=== PATIENT | male | born 1940 | race Caucasian/White ===

== ENCOUNTER → 2017-04-12 | Outpatient (CLI) | payer OTHER ==
[2017-04-12 13:36] LABS: HEMATOCRIT 40.9 % (42-52); MEAN CELL VOLUME 91.1 fL (80-100); MEAN CORPUSCULAR HEMOGLOBIN 30.5 pg (25-34); MEAN CORPUSCULAR HGB CONC 33.5 g/dl (32-36); MEAN PLATELET VOLUME 10.9 fL (7.4-10.4); PLATELET COUNT 148 K/uL (130-400); RED BLOOD COUNT 4.49 M/uL (4.7-6.1); WHITE BLOOD COUNT 4.83 K/uL (4.8-10.8)
[2017-04-12 14:31] LABS: ALT/SGPT 33 U/L (12-78); AST/SGOT 25 U/L (15-37); BLOOD UREA NITROGEN 17 mg/dl (7-18); BUN/CREATININE RATIO 21.7 (10-20); CARBON DIOXIDE 30 mmol/L (21-32); CHLORIDE 108 mmol/L (98-107); CHOLESTEROL 129 mg/dl (0-200); CREATININE 0.78 mg/dl (0.60-1.40); GLUCOSE 100 mg/dl (70-99); POTASSIUM 4.1 mmol/L (3.5-5.1); SODIUM 143 mmol/L (136-145); TRIGLYCERIDES 49 mg/dl (0-150); VERY LOW DENSITY LIPOPROT CALC 10 mg/dl
[2017-04-12 14:35] LABS: CALCIUM 9.1 mg/dl (8.5-10.1); HDL CHOLESTEROL 63 mg/dl; LDL CHOLESTEROL CALCULATED 56 mg/dl; PROSTATE SPECIFIC ANTIGEN < 0.010 ng/ml (0.000-4.000)
== END | disposition home or self-care (01) ==
LOC: C.LABBC 10:10
PROVIDERS: ATTEND Internal Medicine Cardiovascular Disease
DX: I25.10 Atherosclerotic heart disease of native coronary artery without angina pectoris (principal); I10 Essential (primary) hypertension; E78.5 Hyperlipidemia, unspecified; I35.0 Nonrheumatic aortic (valve) stenosis; R74.0 Nonspecific elevation of levels of transaminase and lactic acid dehydrogenase [LDH]; C61 Malignant neoplasm of prostate

== ENCOUNTER 2025-05-16 17:27 | Observation (INO) ==
--- NOTE | 2025-05-16 17:58 | Emergency Department Note ---
History of Present Illness General Chief complaint: Groin Pain Stated complaint: GROIN PAIN AND SWELLING Time Seen by Provider: 05/16/25 17:36 History of Present Illness Provider complaint: Right groin swelling after cardiac cath Maximum Pain Intensity: 4 84-year-old male presents emergency department for right groin swelling status post cardiac cath done today. Patient states he had a cardiac catheterization done by Dr. Monteiro today and it went home and started noticing swelling in his right groin that is painful. He reports no chest pain or difficulty breathing. Home Medications Medication Instructions Recorded Confirmed Type cholecalciferol (vitamin D3) 125 5,000 unit PO DAILY 09/15/18 05/16/25 History mcg (5,000 unit) tablet (Vitamin D3) multivitamin 1 tab PO DAILY 09/15/18 05/16/25 History omeprazole 20 mg capsule,delayed 20 mg PO DAILY #90 caps 04/17/19 05/16/25 Rx release aspirin 81 mg tablet,delayed 81 mg PO DAILY 04/22/19 05/16/25 History release omega-3 fatty acids-fish oil 360 1 cap PO BID 08/07/19 05/16/25 History mg-1,200 mg capsule (Fish Oil) loratadine 10 mg tablet (Allergy 10 mg PO DAILY PRN Congestion 08/26/21 05/16/25 History Relief (loratadine)) carvedilol 3.125 mg tablet (Coreg) 3.125 mg PO BID #180 tabs 10/25/24 05/16/25 Rx ezetimibe 10 mg tablet (Zetia) 10 mg PO DAILY #90 tabs 01/16/25 05/16/25 Rx atorvastatin 80 mg tablet 80 mg PO HS #100 tabs 02/15/25 05/16/25 Rx ascorbic acid (vitamin C) 1,000 mg 1,000 mg PO DAILY 05/09/25 05/16/25 History capsule diphenhydramine HCl 50 mg capsule 50 mg PO DAILY PRN Sleep 05/09/25 05/16/25 History hydrochlorothiazide 12.5 mg tablet 12.5 mg PO DAILY 05/16/25 05/16/25 History Allergies Allergy/AdvReac Type Severity Reaction Status Date / Time iodine Allergy Intermediate FLUSHED/REDDENED Verified 05/16/25 18:50 HOT SKIN Past Med/Surg History Problem List (Updated 05/16/25 @ 22:32 by John Mckay MD) Pseudoaneurysm (Acute) Pseudoaneurysm following procedure Dyspnea on exertion Sinusitis Vitamin D deficiency (Acute) Impaired fasting glucose (Acute) GERD without esophagitis (Acute) Dyslipidemia (Acute) Dupuytren's contracture (Acute) Coronary artery disease (Acute) Cigar smoker (Acute) Carotid bruit (Acute) Aortic stenosis (Acute) Anemia (Acute) Heart murmur HTN (hypertension) Medical History Prostate cancer Myocardial infarction Surgical History S/P Mohs surgery for basal cell carcinoma Hx of colonoscopy Hx of CABG Cataract Hx of heart bypass surgery Family History Father Myocardial infarction Brother Colorectal cancer Hx of heart bypass surgery Stroke Mother Breast cancer Denies family history of Ovarian cancer Prostate cancer Social History Smoking Status: Never smoker Tobacco Type: Cigars Second Hand Exposure: No; Do You Dip or Chew Tobacco: No; Hx Alcohol Use: Yes Alcohol type: beer, wine and hard liquor Alcohol Intake Frequency: 2-3 x/Week Hx Substance Use: No Preferred Language: Syriac Communication Ability: Effective Visual Impairment: No Limitations Hearing Ability: Normal 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 Beliefs That Will Affect Care: None marital status: Current Living Situation: Spouse current occupational status: retired How many Children do You have: 2 Feels Safe at Home: Yes Childhood Exposure to Second-Hand Smoke: Yes Diet: regular caffeine: Yes during the past year weight has: remained stable Dental Care, Regularly: Yes Physical Activity Frequency: Daily Physical Activity Frequency Comment: golfing, gym Seatbelt Use: always Sunscreen Use: Yes Assistive Devices: None Physical Exam Vital Signs Vital Signs - 24 hr 05/16/25 17:31 05/16/25 17:52 05/16/25 17:58 Temperature 36 C L Temperature Source Temporal Artery Scan Pulse Rate 77 79 Pulse Rate [Left Apical] 80 Respiratory Rate 18 19 Respiratory Effort / Characteristics Non-Labored Non-Labored Spontaneous Respiratory Depth Normal Normal Respiratory Pattern Regular Regular Blood Pressure 187/99 H Blood Pressure [Right Arm] 162/93 H Blood Pressure Mean 128 Blood Pressure Mean [Right Arm] 116 Pulse Oximetry 94 93 Oxygen Delivery Method Room Air Room Air Sepsis Recent Fever Within 48 Hours No Sepsis New/Unexplained Change in Mental Status N/A Sepsis Action Taken by Nursing No Action Required 05/16/25 19:50 05/16/25 20:00 05/16/25 20:30 Temperature Temperature Source Pulse Rate 81 Pulse Rate [Left Apical] 81 Respiratory Rate 22 18 Respiratory Effort / Characteristics Non-Labored Spontaneous Respiratory Depth Normal Respiratory Pattern Regular Blood Pressure 161/90 H 155/107 H Blood Pressure [Right Arm] 154/93 H Blood Pressure Mean 113 121 Blood Pressure Mean [Right Arm] 113 Pulse Oximetry 93 91 Oxygen Delivery Method Room Air Room Air Sepsis Recent Fever Within 48 Hours Sepsis New/Unexplained Change in Mental Status Sepsis Action Taken by Nursing 05/16/25 20:42 05/16/25 20:51 05/16/25 20:55 Temperature Temperature Source Pulse Rate 84 89 87 Pulse Rate [Left Apical] Respiratory Rate 24 18 Respiratory Effort / Characteristics Respiratory Depth Respiratory Pattern Blood Pressure Blood Pressure [Right Arm] Blood Pressure Mean Blood Pressure Mean [Right Arm] Pulse Oximetry 92 95 Oxygen Delivery Method Room Air Room Air Sepsis Recent Fever Within 48 Hours Sepsis New/Unexplained Change in Mental Status Sepsis Action Taken by Nursing 05/16/25 21:30 05/16/25 22:00 Temperature Temperature Source Pulse Rate 83 82 Pulse Rate [Left Apical] Respiratory Rate 15 17 Respiratory Effort / Characteristics Respiratory Depth Respiratory Pattern Blood Pressure 154/90 H 145/88 H Blood Pressure [Right Arm] Blood Pressure Mean 120 107 Blood Pressure Mean [Right Arm] Pulse Oximetry 93 94 Oxygen Delivery Method Room Air Room Air Sepsis Recent Fever Within 48 Hours Sepsis New/Unexplained Change in Mental Status Sepsis Action Taken by Nursing Physical Exam NECK: Normal range of motion. Neck supple. No JVD present. CV: Normal rate, regular rhythm, normal heart sounds and intact distal pulses. There is no peripheral edema. Palpable radial pulses bue. PULM/CHEST: Effort normal and breath sounds normal. No respiratory distress. No stridor. no wheezes. no rales. ABD: The abdomen is soft. There is no tenderness. : Tender lump in the patient's right groin over the catheterization site. No overlying ecchymosis. No bleeding from the catheterization site. Course Course 173: The patient was evaluated in room B9. A complete history and physical exam was performed Cardiac monitoring: An order was placed for continuous cardiac monitoring. The monitor shows a rate of 80 with sinus rhythm interpreted by me 1958: Labs are unremarkable. plastic process technician reported that the patient does have a large pseudoaneurysm. Will let cardiology know. 2006: Vital signs stable. Spoke with Dr. Browning cardiology. He states that the patient will need to be evaluated by vascular surgery. Unfortunately there is no vascular surgeon available at this facility this entire weekend. He states the patient might need to be transferred. 2021: Dr. Browning at bedside. He states the patient needs to be transferred to a place for vascular surgery is available. There are staff shortages today and difficulty for ALS ground transport. Both Dr. Browning and I feel like the patient is not a candidate for BLS transfer which is available. Will contact [facility] to see if they are able to accept the patient and possibly fly the patient to their facility. 2035: Dr. Browning and I spoke with Dr. Walters [facility] vascular surgery. Dr. Walters accepted the patient to his service. He states he recommends the patient being transferred to the emergency department at [place] for his team to evaluate the patient in the emergency department. Dr. Browning myself and Dr. Walters spoke with Dr. Dennis on the telephone [place] emergency department. She accepted the patient to the emergency department at the request of Dr. Walters. Transfer center states that there is no air transportation available at this time. Dr. Dennis recommends CT angio of the abdomen pelvis which Dr. Walters agrees with. Patient has allergy to iodine will be treated with Benadryl and Solu-Medrol. Given that there is no air or ground transportation available, patient will need to be admitted to this facility until transportation to [facility] is available via ground or air. Dr. Browning and I feel the patient would be best served in the ICU setting for more closer nursing care. 2101: Vital signs stable. Dr. Oglesby made aware of the case and ICU ARNOL Cook was made aware of the patient and the situation with lack of air ground transportation to [place] from this facility. They will evaluate the patient for admission. Administered Medications Discontinued Medications Diphenhydramine HCl (Diphenhydramine 50 Mg/Ml Vial) 50 mg IV ONE ONE Stop: 05/16/25 20:43 Last Admin: 05/16/25 20:50 Dose: 50 mg Documented By: LANCE Ioversol (Optiray 320 125ml) 119 ml IV ONCE ONE Stop: 05/16/25 21:10 Last Admin: 05/16/25 21:09 Dose: 119 ml Documented By: EMILY Methylprednisolone (Methylprednisolone 125 Mg/2 Ml Vial) 40 mg IV NOW ONE Stop: 05/16/25 20:43 Last Admin: 05/16/25 20:50 Dose: 40 mg Documented By: LANCE Critical Care Time Critical Care Time: Yes Total Critical Care Time: 38 I have personally spent greater than 38 minutes of critical care time in the direct management of this patient. This includes bedside care, interpretation of diagnostic studies, and testing, discussion with consultants, patient, and family members, and other required patient management activities. This 38 minutes is in excess of all separately billable procedures. Medical Decision Making Laboratory Data Attestation: I reviewed the patient's lab results. 05/16/25 17:55 05/16/25 17:55 Lab Results 05/16/25 Range/Units 17:55 WBC 6.89 (4.8-10.8) K/ul RBC 4.63 L (4.70-6.10) M/uL Hgb 14.3 (14.0-18.0) g/dl Hct 41.1 L (42.0-52.0) % MCV 88.8 (80.0-100.0) fL MCH 30.9 (25.0-34.0) pg MCHC 34.8 (32.0-36.0) g/dL RDW Std Deviation 39.7 (36.4-46.3) fL RDW Coeff of Genevieve 12.2 (11.5-14.5) % Plt Count 135 (130-400) K/uL MPV 10.5 (9.4-12.4) fL Immature Gran % (Auto) 0.4 % Neut % (Auto) 88.5 % Lymph % (Auto) 9.9 % [place] % (Auto) 1.0 % Eos % (Auto) 0.1 % Baso % (Auto) 0.1 % Neut # (Auto) 6.09 (1.40-6.50) K/uL Lymph # (Auto) 0.68 L (1.20-3.40) K/uL [place] # (Auto) 0.07 L (0.11-0.59) K/uL Eos # (Auto) 0.01 (0.00-0.50) K/uL Baso # (Auto) 0.01 (0.00-0.20) K/uL Immature Gran # (Auto) 0.03 (0.01-0.20) K/uL PT 11.2 (9.0-12.0) Seconds INR 1.0 (0.9-1.1) APTT 28 (21-31) Seconds PTT Ratio 1.0 Sodium 138 (136-145) mmol/L Potassium 3.8 (3.5-5.1) mmol/L Chloride 103 (98-107) mmol/L Carbon Dioxide 27 (21-32) mmol/L Anion Gap 8 (3-11) BUN 18 (6-23) mg/dl Creatinine 0.80 (0.6-1.4) mg/dl Est Cr Clr Drug Dosing 84.0 ml/min eGFR 87.81 BUN/Creatinine Ratio 22.5 H (10-20) Glucose 214 H (70-99(Fasting)) mg/dl Calcium 9.6 (8.6-10.3) mg/dl Imaging Data Attestation: I personally reviewed and interpreted this imaging study as follows: My Impression: Ultrasound viewed by id showed a large pseudoaneurysm in the right groin Radiologist's Impression: Duplex Scan Lower Extremity Artery 05/16/25 17:53 Limited right lower extremity arterial Doppler ultrasound Technique:Grayscale and color Doppler ultrasound images of the right groin. No comparison Findings: There is a 4.8 x 4.9 x 2.9 cm right sided pseudoaneurysm arising from the common femoral artery. There is a relatively short neck. No comparison Findings: 4.8 cm right common femoral artery pseudoaneurysm. CT angiogram recommended for further evaluation. Electronically signed by Martin Ace 05-16-2025 8:40 PM [facility] Narrative 1736: The patient was evaluated in room B9. A complete history and physical exam was performed Cardiac monitoring: An order was placed for continuous cardiac monitoring. The monitor shows a rate of 80 with sinus rhythm interpreted by me 1959: Labs are unremarkable. plastic process technician reported that the patient does have a large pseudoaneurysm. Will let cardiology know. 2006: Vital signs stable. Spoke with Dr. Browning cardiology. He states that the patient will need to be evaluated by vascular surgery. Unfortunately there is no vascular surgeon available at this facility this entire weekend. He states the patient might need to be transferred. 2021: Dr. Browning at bedside. He states the patient needs to be transferred to a place for vascular surgery is available. There are staff shortages today and difficulty for ALS ground transport. Both Dr. Browning and I feel like the patient is not a candidate for BLS transfer which is available. Will contact [facility] to see if they are able to accept the patient and possibly fly the patient to their facility. 2035: Dr. Browning and I spoke with Dr. Walters [facility] vascular surgery. Dr. Walters accepted the patient to his service. He states he recommends the patient being transferred to the emergency department at [place] for his team to evaluate the patient in the emergency department. Dr. Browning myself and Dr. Walters spoke with Dr. Dennis on the telephone [place] emergency department. She accepted the patient to the emergency department at the request of Dr. Walters. Transfer center states that there is no air transportation available at this time. Dr. Dennis recommends CT angio of the abdomen pelvis which Dr. Walters agrees with. Patient has allergy to iodine will be treated with Benadryl and Solu-Medrol. Given that there is no air or ground transportation available, patient will need to be admitted to this facility until transportation to [facility] is available via ground or air. Dr. Browning and I feel the patient would be best served in the ICU setting for more closer nursing care. 2101: Vital signs stable. Dr. Oglesby made aware of the case and ICU ARNOL Cook was made aware of the patient and the situation with lack of air ground transportation to [place] from this facility. They will evaluate the patient for admission. Impression & Plan Pseudoaneurysm Discharge Plan Visit Data Chief Complaint: Groin Pain Stated Complaint: GROIN PAIN AND SWELLING ED Provider: John Mckay Discharge Problem: Pseudoaneurysm Patient Disposition: Admitted As Inpatient Condition: Serious Forms Stand Alone Forms: My [facility] Prescriptions Prescriptions: No Action carvedilol [Coreg] 3.125 mg tablet 3.125 mg PO BID Qty: 180 3RF Rx Instructions: must administer with a meal/food ezetimibe [Zetia] 10 mg tablet 10 mg PO DAILY Qty: 90 3RF atorvastatin 80 mg tablet 80 mg PO HS Qty: 100 3RF omeprazole 20 mg capsule,delayed release(DR/EC) 20 mg PO DAILY Qty: 90 1RF aspirin 81 mg tablet,delayed release (DR/EC) 81 mg PO DAILY omega-3 fatty acids-fish oil [Fish Oil] 360-1,200 mg capsule 1 cap PO BID loratadine [Allergy Relief (loratadine)] 10 mg tablet 10 mg PO DAILY PRN (Reason: Congestion) ascorbic acid (vitamin C) 1,000 mg capsule 1,000 mg PO DAILY diphenhydramine HCl 50 mg capsule 50 mg PO DAILY PRN (Reason: Sleep) multivitamin Tablet 1 tab PO DAILY cholecalciferol (vitamin D3) [Vitamin D3] 5,000 unit Tablet 5,000 unit PO DAILY hydrochlorothiazide 12.5 mg tablet 12.5 mg PO DAILY Referrals Referrals: Syed Tyson DO [Primary Care Provider] -
[2025-05-16 18:13] LABS: Basophils # (auto) 0.01 K/uL (0.00-0.20); Basophils % (auto) 0.1 %; Eosinophils # (auto) 0.01 K/uL (0.00-0.50); Eosinophils % (auto) 0.1 %; Hematocrit (blood only) 41.1 % (42.0-52.0); Hemoglobin 14.3 g/dl (14.0-18.0); Immature Granulocytes # (auto) 0.03 K/uL (0.01-0.20); Immature Granulocytes % (auto) 0.4 %; Lymphocytes # (auto) 0.68 K/uL (1.20-3.40); Lymphocytes % (auto) 9.9 %; Mean Corpuscular Hemoglobin 30.9 pg (25.0-34.0); Mean Corpuscular Hgb Conc 34.8 g/dL (32.0-36.0); Mean Corpuscular Volume 88.8 fL (80.0-100.0); Mean Platelet Volume 10.5 fL (9.4-12.4); Monocytes # (auto) 0.07 K/uL (0.11-0.59); Neutrophils # (auto) 6.09 K/uL (1.40-6.50); Neutrophils % (auto) 88.5 %; Platelet Count 135 K/uL (130-400); RDW Coefficient of Variation 12.2 % (11.5-14.5); RDW Standard Deviation 39.7 fL (36.4-46.3); Red Blood Count 4.63 M/uL (4.70-6.10); White Blood Count 6.89 K/ul (4.8-10.8)
[2025-05-16 18:26] LABS: BUN Creatinine Ratio 22.5 (10-20); Calcium 9.6 mg/dl (8.6-10.3); Potassium 3.8 mmol/L (3.5-5.1)
[2025-05-16 18:37] LABS: Partial Thromboplastin Time 28 Seconds (21-31); Prothrombin Time 11.2 Seconds (9.0-12.0)
--- NOTE | 2025-05-16 20:40 | Ultrasound Report ---
Limited right lower extremity arterial Doppler ultrasound Technique:Grayscale and color Doppler ultrasound images of the right groin. No comparison Findings: There is a 4.8 x 4.9 x 2.9 cm right sided pseudoaneurysm arising from the common femoral artery. There is a relatively short neck. No comparison Findings: 4.8 cm right common femoral artery pseudoaneurysm. CT angiogram recommended for further evaluation. Electronically signed by Martin Ace 05-16-2025 8:40 PM
[2025-05-16] MEDS: diphenhydrAMINE 50 MG/ML VIAL IV ONE (20:50)
[2025-05-16] MEDS: methylPREDNISolone 125 MG/2 ML VIAL IV ONE (20:50)
[2025-05-16] MEDS: OPTIRAY 320 125ml IV ONE (21:09)
--- NOTE | 2025-05-16 21:39 | History & Physical Report ---
Date of Service May 16, 2025 Assessment & Plan (1) Pseudoaneurysm: (2) Coronary artery disease: (3) HTN (hypertension): (4) Dyslipidemia: (5) GERD without esophagitis: Plan 84yo male with known multi-vessel CAD s/p CABG presenting with right sided groin pain and swelling following cardiac catheterization performed earlier today. Found to have pseucoaneurysm. Patient is HD stable, RLE is warm and well perfused. No pain in the groin at present. #Pseudoaneurysm - post-procedural, large right common femoral artery aneurysm. Stable at present. Unfortunately no Vascular Surgery coverage at [facility] this weekend. Patient has been accepted [place] [facility] [place] of [place]. Morton. No transportation available until tomorrow at 0700. -Admit to MICU -Maintain manual pressure as needed -Ice -NV checks q hourly -Transfer in AM #CAD -Continue Atorvastatin, Carvedilol, Zetia -Hold ASA #Hypertension -Continue Carvedilol and HCTZ #GERD -Continue Protonix History of Present Illness Chief Complaint: right groin pain, pseudoaneurysm Primary Care Provider: DO Darlene Grimes Dwayne is a pleasant 84yo male with history of multivessel CAD s/p CABG x 5v and severe aortic stenosis with mild AR per echo 04/29/2025, HTN, HLP and GERD presenting with right femoral pseudoaneurysm following a cardiac catheterization. Patient had catheterization performed today as part of his workup for a future TAVR. Multi-vessel disease re-demonstrated with patent grafts. After returning home he noted right groin swelling an discomfort. No additional complaints at this time. In the ER patient afebrile, hemodynamically stable with mild hypertension ER course: Benadryl Solu-Medrol Allergies Allergy/AdvReac Type Severity Reaction Status Date / Time iodine Allergy Intermediate FLUSHED/REDDENED Verified 05/16/25 18:50 HOT SKIN Home Medications Medication Instructions Recorded Confirmed Type cholecalciferol (vitamin D3) 125 5,000 unit PO DAILY 09/15/18 05/16/25 History mcg (5,000 unit) tablet (Vitamin D3) multivitamin 1 tab PO DAILY 09/15/18 05/16/25 History omeprazole 20 mg capsule,delayed 20 mg PO DAILY #90 caps 04/17/19 05/16/25 Rx release aspirin 81 mg tablet,delayed 81 mg PO DAILY 04/22/19 05/16/25 History release omega-3 fatty acids-fish oil 360 1 cap PO BID 08/07/19 05/16/25 History mg-1,200 mg capsule (Fish Oil) loratadine 10 mg tablet (Allergy 10 mg PO DAILY PRN Congestion 08/26/21 05/16/25 History Relief (loratadine)) carvedilol 3.125 mg tablet (Coreg) 3.125 mg PO BID #180 tabs 10/25/24 05/16/25 Rx ezetimibe 10 mg tablet (Zetia) 10 mg PO DAILY #90 tabs 01/16/25 05/16/25 Rx atorvastatin 80 mg tablet 80 mg PO HS #100 tabs 02/15/25 05/16/25 Rx ascorbic acid (vitamin C) 1,000 mg 1,000 mg PO DAILY 05/09/25 05/16/25 History capsule diphenhydramine HCl 50 mg capsule 50 mg PO DAILY PRN Sleep 05/09/25 05/16/25 History hydrochlorothiazide 12.5 mg tablet 12.5 mg PO DAILY 05/16/25 05/16/25 History Past Med/Surg History Problem List Pseudoaneurysm (Acute) Pseudoaneurysm following procedure Dyspnea on exertion Sinusitis Vitamin D deficiency (Acute) Impaired fasting glucose (Acute) GERD without esophagitis (Acute) Dyslipidemia (Acute) Dupuytren's contracture (Acute) Coronary artery disease (Acute) Cigar smoker (Acute) Carotid bruit (Acute) Aortic stenosis (Acute) Anemia (Acute) Heart murmur HTN (hypertension) Medical History Prostate cancer Myocardial infarction Surgical History S/P Mohs surgery for basal cell carcinoma Hx of colonoscopy Hx of CABG Cataract Hx of heart bypass surgery Family History Father Myocardial infarction Brother Colorectal cancer Hx of heart bypass surgery Stroke Mother Breast cancer Denies family history of Ovarian cancer Prostate cancer Social History Smoking Status: Former smoker Tobacco Type: Pipe Smoking End Date: 5 years ago; Second Hand Exposure: No; Do You Dip or Chew Tobacco: No; Hx Alcohol Use: No Hx Substance Use: No Preferred Language: Bahraini Communication Ability: Effective Visual Impairment: No Limitations Hearing Ability: Normal Experimental 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 Required: No Beliefs That Will Affect Care: None marital status: Current Living Situation: Spouse Current Living Situation Comment: lives at home with current occupational status: retired How many Children do You have: 2 Other Information That Helps Us Care for You: No Feels Safe at Home: Yes Safety Concerns: Feels Safe At This Time Childhood Exposure to Second-Hand Smoke: Yes Diet: regular caffeine: Yes during the past year weight has: remained stable Dental Care, Regularly: Yes Physical Activity Frequency: Daily Physical Activity Frequency Comment: golfing, gym Seatbelt Use: always Sunscreen Use: Yes Assistive Devices: None Review of Systems Review of Systems: All systems reviewed & are unremarkable except as noted in HPI & below Physical Exam Physical Exam: General: patient resting comfortably, NAD, non-toxic in appearance, AA&O x 4 Skin: warm, dry, intact, no rashes or lesions HEENT: NC/AT, PERRL, EOMI, anicteric sclera, conjunctiva without injection, external ear normal to inspection and nontender, nares patent, moist mucus membranes, dentition intact, no oropharyngeal lesions, neck supple, trachea midline, no LAD, no thyromegaly, no JVD Heart: +S1/S2, regular, 4/6 VIJAY across precordium to bilateral carotids Lungs: equal air entry bilaterally, no rales/rhonchi/wheezes Abd: +BS, soft, NT/ND, no masses/organomegaly/ascites Ext: warm, 2+ pulses in UE/LE bilaterally, no clubbing/cyanosis or edema Neuro: nonfocal, patient AA&O x 4, speech intact, no facial droop, moving all extremities on command with equal strength 5/5 Results & Data Results & Data Vital Signs (Past 12 Hours) Vital Signs Temp Pulse Pulse Resp BP BP Pulse Ox 05/16/25 21:30 83 15 154/90 H 93 05/16/25 20:55 87 05/16/25 20:51 89 18 95 05/16/25 20:42 84 24 92 05/16/25 20:30 155/107 H 05/16/25 20:00 81 18 161/90 H 91 05/16/25 19:50 81 22 154/93 H 93 05/16/25 17:58 80 19 162/93 H 93 05/16/25 17:52 79 05/16/25 17:31 36 C L 77 18 187/99 H 94 O2 Del Method 05/16/25 21:30 Room Air 05/16/25 20:55 05/16/25 20:51 Room Air 05/16/25 20:42 Room Air 05/16/25 20:30 05/16/25 20:00 Room Air 05/16/25 19:50 Room Air 05/16/25 17:58 Room Air 05/16/25 17:52 05/16/25 17:31 Room Air Laboratory Results Laboratory Results WBC 6.89 K/ul (4.8-10.8) 05/16/25 17:55 RBC 4.63 M/uL (4.70-6.10) L 05/16/25 17:55 Hgb 14.3 g/dl (14.0-18.0) 05/16/25 17:55 Hct 41.1 % (42.0-52.0) L 05/16/25 17:55 MCV 88.8 fL (80.0-100.0) 05/16/25 17:55 MCH 30.9 pg (25.0-34.0) 05/16/25 17:55 MCHC 34.8 g/dL (32.0-36.0) 05/16/25 17:55 RDW Std Deviation 39.7 fL (36.4-46.3) 05/16/25 17:55 RDW Coeff of Genevieve 12.2 % (11.5-14.5) 05/16/25 17:55 Plt Count 135 K/uL (130-400) 05/16/25 17:55 MPV 10.5 fL (9.4-12.4) 05/16/25 17:55 Immature Gran % (Auto) 0.4 % 05/16/25 17:55 Neut % (Auto) 88.5 % 05/16/25 17:55 Lymph % (Auto) 9.9 % 05/16/25 17:55 [place] % (Auto) 1.0 % 05/16/25 17:55 Eos % (Auto) 0.1 % 05/16/25 17:55 Baso % (Auto) 0.1 % 05/16/25 17:55 Neut # (Auto) 6.09 K/uL (1.40-6.50) 05/16/25 17:55 Lymph # (Auto) 0.68 K/uL (1.20-3.40) L 05/16/25 17:55 [place] # (Auto) 0.07 K/uL (0.11-0.59) L 05/16/25 17:55 Eos # (Auto) 0.01 K/uL (0.00-0.50) 05/16/25 17:55 Baso # (Auto) 0.01 K/uL (0.00-0.20) 05/16/25 17:55 Immature Gran # (Auto) 0.03 K/uL (0.01-0.20) 05/16/25 17:55 PT 11.2 Seconds (9.0-12.0) 05/16/25 17:55 INR 1.0 (0.9-1.1) 05/16/25 17:55 APTT 28 Seconds (21-31) 05/16/25 17:55 PTT Ratio 1.0 05/16/25 17:55 Sodium 138 mmol/L (136-145) 05/16/25 17:55 Potassium 3.8 mmol/L (3.5-5.1) 05/16/25 17:55 Chloride 103 mmol/L (98-107) 05/16/25 17:55 Carbon Dioxide 27 mmol/L (21-32) 05/16/25 17:55 Anion Gap 8 (3-11) 05/16/25 17:55 BUN 18 mg/dl (6-23) 05/16/25 17:55 Creatinine 0.80 mg/dl (0.6-1.4) 05/16/25 17:55 Est Cr Clr Drug Dosing 84.0 ml/min 05/16/25 17:55 eGFR 87.81 05/16/25 17:55 BUN/Creatinine Ratio 22.5 (10-20) H 05/16/25 17:55 Glucose 214 mg/dl (70-99(Fasting)) H 05/16/25 17:55 Calcium 9.6 mg/dl (8.6-10.3) 05/16/25 17:55 Impressions Duplex Scan Lower Extremity Artery 05/16/25 17:53 Limited right lower extremity arterial Doppler ultrasound Technique:Grayscale and color Doppler ultrasound images of the right groin. No comparison Findings: There is a 4.8 x 4.9 x 2.9 cm right sided pseudoaneurysm arising from the common femoral artery. There is a relatively short neck. No comparison Findings: 4.8 cm right common femoral artery pseudoaneurysm. CT angiogram recommended for further evaluation. Electronically signed by Martin Ace 05-16-2025 8:40 PM Diagnostic Findings [place], [place] [phone] CT Scan Report Patient: DARLENE CHAVEZ Admit Date: 05/16/25 MR#: [id number] Address1: [address] [place] [address] Acct ID:[id number] Address2: Date: 1940 [facility] Zip: [place] [address] Age: 84 Location: 1E Sex: M Room/Bed: [facility] Att Phy: Nidia Oglesby D.O. Diagnosis: RIGHT PSEUDOANEURYSM S/P CATHETERIZATION Genevieve Phy: Syed Tyson DO Service Date: 05/16/25 Fam Phy: Interpreting Phy: George Owens MDAdmit Phy: Nidia Oglesby D.ODaniel Ordering Phy: John Mckay MD cc: ~ Exam(s): CTA ABDOMEN + PELVIS With Contrast EXAM: CT Angiography Abdomen and Pelvis With Intravenous Contrast CLINICAL HISTORY: pseudoaneurysm. TECHNIQUE: Axial computed tomographic angiography images of the abdomen and pelvis with intravenous contrast. CTDI is 32.06 mGy and DLP is 1514.32 mGy-cm. Automated exposure control was utilized for the study. A dose lowering technique was utilized adhering to the principles of ALARA. 3D and MIP reconstructed images were created and reviewed. CONTRAST: 100 ml Omnipaque 350 COMPARISON: No relevant prior studies available. FINDINGS: VASCULATURE: Aorta: Mild diffuse partially calcified atherosclerotic plaque throughout the abdominal aorta. Normal caliber proximal and mid abdominal aorta. 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 No significant stenosis. No dissection. No periaortic infiltration or extravasation. Celiac trunk and mesenteric arteries: Minimal plaque of the origin of the superior mesenteric artery. Unremarkable inferior mesenteric artery. Mild diffuse atherosclerotic plaque in the distal branches. No definite occlusion. Renal arteries: Mild bilateral proximal renal artery atherosclerotic plaque. No occlusion or significant stenosis. Iliac arteries: Mild diffuse atherosclerotic plaque. No aneurysm of the grand traverse vessel. Right inguinal hernia with fluid and infiltration anterior to the common femoral artery and vein. 1.5 x 1.1 cm homogeneously enhancing structure within the right inguinal region surrounded by 4.8 x 4.6 cm fluid/hematoma, most suspicious for a pseudoaneurysm extending from the adjacent common femoral artery (axial series 2 image 78, sagittal series 303 image 35). No other contrast extravasation. Right inguinal hernia fat and fluid extends to the scrotum without involvement of bowel. Lung bases: [id number]-right basilar atelectasis. Mild cardiomegaly. ABDOMEN: Liver: Mildly hypodense/fatty. Normal size. No mass. Gallbladder and bile ducts: Partially contracted. Multiple small calcified gallstones. Gallbladder otherwise unremarkable. No ductal dilation. Pancreas: Unremarkable. No ductal dilation. No mass. Spleen: Top-normal length at 12.9 cm. Adrenals: Unremarkable. No mass. Kidneys and ureters: Unremarkable. No hydronephrosis. No solid mass. Stomach and bowel: No bowel obstruction or ileus. Left and sigmoid colon diverticulosis without evidence for acute diverticulitis. PELVIS: Appendix: No findings to suggest acute appendicitis. Bladder: Partially contracted. No mass. Reproductive: Prostate gland brachial therapy seeds. ABDOMEN and PELVIS: Intraperitoneal space: Unremarkable. No significant fluid collection. No free air. Bones/joints: No acute fracture. No dislocation. Soft tissues: Unremarkable. Lymph nodes: Unremarkable. No enlarged lymph nodes. IMPRESSION: Right groin pseudoaneurysm arising from the common femoral artery surrounded by a hematoma. Right inguinal hernia containing fat and fluid extending to the scrotum. Diffuse atherosclerotic changes. 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 No dissection. Cholelithiasis. Senescent changes. Electronically signed by: George Owens M.D. 05/17/25 01:07 AM Dictated: 06/28/25 0107 Transcribed: 05/17/25106 PG Care Time/CCT Total # of Minutes Spent Total Time Spent with Patient: Total time spent is greater than 50% in coordination of care (as documented) at patient's floor/unit and/or counseling patient: Coding Level of Care Code 57742 INT INP/OBS CARE 3/75MIN Diagnoses Pseudoaneurysm I72.9 Coronary artery disease I25.10 HTN (hypertension) I10 Dyslipidemia E78.5 GERD without esophagitis K21.9
--- NOTE | 2025-05-16 22:00 | Critical Care Consultation ---
Date of Consultation May 16, 2025 Assessment & Plan (1) Pseudoaneurysm following procedure: (2) Aortic stenosis: (3) HTN (hypertension): Plan Addendum 0600: D/w Vascular team [place] [facility] to provide [place]. He is accepted to [facility] level of care. Transfer pending transport availability. Patient was updated, will be updated. Reason Critically Ill: 1. 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 4/5 grafts patent, procedure uncomplicated per Dr. Browning. Mynx device failed thus pressure held to hemostasis MAP goal > 65mmHg, avoid significant hypertension Vascular checks, Ice packs and compression to femoral access site CTA is pending per Vascular Surgery request. They will be contacted with the result Plan for transfer to [facility], he has been accepted Continue statin, beta rita. Hold ASA overnight. No other thinners noted Dr. Browning remains available should patient decompensate, appreciate continued recommendations Respiratory - No acute concerns SpO2 goal > 92% HOB 30, hold IS/Flutter for now GI - No acute concerns Diet: NPO except meds SUP: Home PPI Bowel regimen: Start tomorrow RENAL/LYTES - No acute concerns Replete electrolytes as indicated No indication for andres. Urinal and remain in bed. Maintain net even to net negative ENDO - No acute concerns BG 140-180 per SCCM guidelines ISS if needed while inpatient HEME - No acute concerns Hold ASA ID - No acute concerns Any ebony-operative antibiotics per compliance consultant services LINES/TUBES/DRAINS - PIV x2 DVT PROPHYLAXIS - Held, contraindicated with bleeding risk I have personally spent 35 minutes of critical care time in the direct management of this patient. This is a life/limb threatening event. This includes time spent evaluating patient, direct bedside care, chart review, placing orders, interpretation of diagnostic studies, discussion with consultants, patient, and family members, as well as other required patient management activities. This time is exclusive of all separately billable procedures, and teaching time and separate from and in addition to any other critical care service time. Thank you for allowing us to participate in the care of this patient. Please refer to my attending physician's documentation for any further recommendations. History of Present Illness Reason for Consultation: Pseudoaneurysm Requesting Physician: Mendel Attending Physician: Mendel History of Present Illness Mr. Brian Rice is a pleasant 84YOM with a history of CAD s/p CABG x5, severe LVH, severe aortic stenosis with mild AR, GERD, HTN/HLD who presented to [facility] ED this evening due to R groin pain and swelling following a cardiac catheterization 05/16/2025 AM. Per report, patient had uncomplicated pre- operative cardiac catherization for TAVR this AM with Dr. Browning. Mynx closure device was unsuccessful, but manual pressure was held to adequate hemostasis per protocol and patient was discharged home in stable condition. A few hours later he noticed a lump on his R groin. LE duplex revealed large short-necked pseudoaneurysm. Dr. Browning was consulted who recommended Vascular Surgery con sultation. As there is no on-call Vascular service this evening, the patient was presented for transfer and accepted at [facility]. BLS transport was deferred given critical illness with risk of aneurysm rupture. Due to apparent lack of available ALS transportation services, the patient was admitted to ICU for close monitoring pending transfer. Mr. Rice was seen in ED B09. He is AAOx3. Hemodynamically stable. at bedside. Patient declines pain at this time. Sensation intact peripherally and BLE warm and well-perfused. The current situation was discussed at length. Patient understands that there is a risk of aneurysm rupture while awaiting transport. I assured him that in such a situation we would do all within our abilities to provide hemostasis and safe transfer to a facility with the appropriate services when it becomes available. Currently the patient is stable without any impending signs of rupture. All questions were answered to apparent satisfaction. Allergies Allergy/AdvReac Type Severity Reaction Status Date / Time iodine Allergy Intermediate FLUSHED/REDDENED Verified 05/16/25 18:50 HOT SKIN Home Medications Medication Instructions Recorded Confirmed Type cholecalciferol (vitamin D3) 125 5,000 unit PO DAILY 09/15/18 05/16/25 History mcg (5,000 unit) tablet (Vitamin D3) multivitamin 1 tab PO DAILY 09/15/18 05/16/25 History omeprazole 20 mg capsule,delayed 20 mg PO DAILY #90 caps 04/17/19 05/16/25 Rx release aspirin 81 mg tablet,delayed 81 mg PO DAILY 04/22/19 05/16/25 History release omega-3 fatty acids-fish oil 360 1 cap PO BID 08/07/19 05/16/25 History mg-1,200 mg capsule (Fish Oil) loratadine 10 mg tablet (Allergy 10 mg PO DAILY PRN Congestion 08/26/21 05/16/25 History Relief (loratadine)) carvedilol 3.125 mg tablet (Coreg) 3.125 mg PO BID #180 tabs 10/25/24 05/16/25 Rx ezetimibe 10 mg tablet (Zetia) 10 mg PO DAILY #90 tabs 01/16/25 05/16/25 Rx atorvastatin 80 mg tablet 80 mg PO HS #100 tabs 02/15/25 05/16/25 Rx ascorbic acid (vitamin C) 1,000 mg 1,000 mg PO DAILY 05/09/25 05/16/25 History capsule diphenhydramine HCl 50 mg capsule 50 mg PO DAILY PRN Sleep 05/09/25 05/16/25 History hydrochlorothiazide 12.5 mg tablet 12.5 mg PO DAILY 05/16/25 05/16/25 History Patient History Medical History Prostate cancer Myocardial infarction Surgical History S/P Mohs surgery for basal cell carcinoma Hx of colonoscopy Hx of CABG Cataract Hx of heart bypass surgery Family History Father Myocardial infarction Brother Colorectal cancer Hx of heart bypass surgery Stroke Mother Breast cancer Denies family history of Ovarian cancer Prostate cancer Social History Smoking Status: Former smoker Tobacco Type: Pipe Smoking End Date: 5 years ago; Second Hand Exposure: No; Do You Dip or Chew Tobacco: No; Hx Alcohol Use: No Hx Substance Use: No Preferred Language: Slovak Communication Ability: Effective Visual Impairment: No Limitations Hearing Ability: Normal Hand Profiler Required: No Beliefs That Will Affect Care: None marital status: Current Living Situation: Spouse Current Living Situation Comment: lives at home with current occupational status: retired How many Children do You have: 2 Other Information That Helps Us Care for You: No Feels Safe at Home: Yes Safety Concerns: Feels Safe At This Time Childhood Exposure to Second-Hand Smoke: Yes Diet: regular caffeine: Yes during the past year weight has: remained stable Dental Care, Regularly: Yes Physical Activity Frequency: Daily Physical Activity Frequency Comment: golfing, gym Seatbelt Use: always Sunscreen Use: Yes Assistive Devices: None Review of Systems Review of Systems: All systems reviewed & are unremarkable except as noted in Subjective Physical Exam Constitutional: WD/WN, vitals as above Eyes: PERRL, conjunctivae normal, anicteric sclerae ENMT: external ear and nose normal, oropharynx normal Neck: trachea midline, no thyromegaly Respiratory: normal respiratory effort, lungs clear to auscultation Cardiovascular: Rate/Rhythm: regular rate and regular rhythm Vessels: no JVD and no carotid bruit Extremities: normal capillary refill; no edema R groin hard, pulsatile mass Gastrointestinal (Abdomen): normal bowel sounds, soft, nontender, no hepatosplenomegaly Musculoskeletal: no cyanosis or clubbing, extremities motor strength 5/5 Skin: no rashes, warm and dry Surgical site hemostatic with peripheral perfusion intact. R leg warm Neurologic: PERRL, EOMI, accommodation nl, no face palsy, no dysarthria Genitourinary: Deferred Results & Data Results & Data Vital Signs (Past 12 Hours) Vital Signs Temp Pulse Pulse Resp BP BP Pulse Ox 05/16/25 21:30 83 15 154/90 H 93 05/16/25 20:55 87 05/16/25 20:51 89 18 95 05/16/25 20:42 84 24 92 05/16/25 20:30 155/107 H 05/16/25 20:00 81 18 161/90 H 91 05/16/25 19:50 81 22 154/93 H 93 05/16/25 17:58 80 19 162/93 H 93 05/16/25 17:52 79 05/16/25 17:31 36 C L 77 18 187/99 H 94 O2 Del Method 05/16/25 21:30 Room Air 05/16/25 20:55 05/16/25 20:51 Room Air 05/16/25 20:42 Room Air 05/16/25 20:30 05/16/25 20:00 Room Air 05/16/25 19:50 Room Air 05/16/25 17:58 Room Air 05/16/25 17:52 05/16/25 17:31 Room Air Laboratory Results Reviewed Diagnostic Findings Reviewed Medications Administered See YANE Coding Level of Care Code 49659 INT INP/OBS CARE MIN Diagnoses Pseudoaneurysm following procedure T81.718A; I72.9 Aortic stenosis I35.0 HTN (hypertension) I10
[2025-05-17] MEDS ORDERED: ONDANSETRON INJ 2 MG/ML 2 ML VIAL IV PRN (00:29)
[2025-05-17] MEDS ORDERED: ACETAMINOPHEN 325 MG TAB PO PRN (00:29)
[2025-05-17] MEDS: ATORVASTATIN 40 MG TAB PO STA (00:49)
[2025-05-17] MEDS: carvediloL 3.125 MG TAB PO ONE (00:50)
--- NOTE | 2025-05-17 01:08 | CT Scan Report ---
Exam(s): CTA ABDOMEN + PELVIS With Contrast EXAM: CT Angiography Abdomen and Pelvis With Intravenous Contrast CLINICAL HISTORY: pseudoaneurysm. TECHNIQUE: Axial computed tomographic angiography images of the abdomen and pelvis with intravenous contrast. CTDI is 32.06 mGy and DLP is 1514.32 mGy-cm. Automated exposure control was utilized for the study. A dose lowering technique was utilized adhering to the principles of ALARA. 3D and MIP reconstructed images were created and reviewed. CONTRAST: 100 ml Omnipaque 350 COMPARISON: No relevant prior studies available. FINDINGS: VASCULATURE: Aorta: Mild diffuse partially calcified atherosclerotic plaque throughout the abdominal aorta. Normal caliber proximal and mid abdominal aorta. 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 No significant stenosis. No dissection. No periaortic infiltration or extravasation. Celiac trunk and mesenteric arteries: Minimal plaque of the origin of the superior mesenteric artery. Unremarkable inferior mesenteric artery. Mild diffuse atherosclerotic plaque in the distal branches. No definite occlusion. Renal arteries: Mild bilateral proximal renal artery atherosclerotic plaque. No occlusion or significant stenosis. Iliac arteries: Mild diffuse atherosclerotic plaque. No aneurysm of the [place] vessel. Right inguinal hernia with fluid and infiltration anterior to the common femoral artery and vein. 1.5 x 1.1 cm homogeneously enhancing structure within the right inguinal region surrounded by 4.8 x 4.6 cm fluid/hematoma, most suspicious for a pseudoaneurysm extending from the adjacent common femoral artery (axial series 2 image 78, sagittal series 303 image 35). No other contrast extravasation. Right inguinal hernia fat and fluid extends to the scrotum without involvement of bowel. Lung bases: Xjgs-[id number]-rfoa-right basilar atelectasis. Mild cardiomegaly. ABDOMEN: Liver: Mildly hypodense/fatty. Normal size. No mass. Gallbladder and bile ducts: Partially contracted. Multiple small calcified gallstones. Gallbladder otherwise unremarkable. No ductal dilation. Pancreas: Unremarkable. No ductal dilation. No mass. Spleen: Top-normal length at 12.9 cm. Adrenals: Unremarkable. No mass. Kidneys and ureters: Unremarkable. No hydronephrosis. No solid mass. Stomach and bowel: No bowel obstruction or ileus. Left and sigmoid colon diverticulosis without evidence for acute diverticulitis. PELVIS: Appendix: No findings to suggest acute appendicitis. Bladder: Partially contracted. No mass. Reproductive: Prostate gland brachial therapy seeds. ABDOMEN and PELVIS: Intraperitoneal space: Unremarkable. No significant fluid collection. No free air. Bones/joints: No acute fracture. No dislocation. Soft tissues: Unremarkable. Lymph nodes: Unremarkable. No enlarged lymph nodes. IMPRESSION: Right groin pseudoaneurysm arising from the common femoral artery surrounded by a hematoma. Right inguinal hernia containing fat and fluid extending to the scrotum. Diffuse atherosclerotic changes. 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 No dissection. Cholelithiasis. Senescent changes. Electronically signed by: George Owens M.D. 05/17/25 01:07 AM
[2025-05-17 05:33] LABS: Hematocrit (blood only) 37.9 % (42.0-52.0); Hemoglobin 13.4 g/dl (14.0-18.0); Mean Corpuscular Hemoglobin 31.4 pg (25.0-34.0); Mean Corpuscular Hgb Conc 35.4 g/dL (32.0-36.0); Mean Corpuscular Volume 88.8 fL (80.0-100.0); Platelet Count 137 K/uL (130-400); RDW Coefficient of Variation 12.1 % (11.5-14.5); RDW Standard Deviation 38.8 fL (36.4-46.3); Red Blood Count 4.27 M/uL (4.70-6.10); White Blood Count 10.41 K/ul (4.8-10.8)
[2025-05-17 05:38] VITALS: RESP 20
[2025-05-17 05:47] LABS: BUN Creatinine Ratio 30.3 (10-20); Calcium 9.1 mg/dl (8.6-10.3); Creatinine Clr Calc Pharmacy 101.8 ml/min; Potassium 3.6 mmol/L (3.5-5.1)
[2025-05-17] MEDS: POTASSIUM CHLORIDE CRTAB 20 MEQ TABCR PO STA (06:14)
--- NOTE | 2025-05-17 06:56 | Discharge Summary ---
Discharge Summary Date of Service May 17, 2025 Principal Dx & Hospital Course #1 = Principal Diagnosis (1) Pseudoaneurysm: (2) Coronary artery disease: (3) HTN (hypertension): (4) Dyslipidemia: (5) GERD without esophagitis: Plan 84yo male with known multi-vessel CAD s/p CABG presenting with right sided groin pain and swelling following cardiac catheterization performed earlier today. Found to have pseucoaneurysm. Patient is HD stable, RLE is warm and well perfused. No pain in the groin at present. #Pseudoaneurysm - post-procedural, large right common femoral artery aneurysm. Stable at present. Unfortunately no Vascular Surgery coverage at [facility] this weekend. Patient has been accepted to [facility] service of Dr. Morton. No transportation available until tomorrow at 0700. -Admit to MICU -Maintain manual pressure as needed -Ice -NV checks q hourly -Transfer in AM #CAD -Continue Atorvastatin, Carvedilol, Zetia -Hold ASA #Hypertension -Continue Carvedilol and HCTZ #GERD -Continue Protonix Patient is being discharged to [facility] for Vascular Surgery intervention He has been accepted by Dr. Morton Admission HPI Per Admitting Provider Brian Rice is a pleasant 84yo male with history of multivessel CAD s/p CABG x 5v and severe aortic stenosis with mild AR per echo 04/29/2025, HTN, HLP and GERD presenting with right femoral pseudoaneurysm following a cardiac catheterization. Patient had catheterization performed today as part of his workup for a future TAVR. Multi-vessel disease re-demonstrated with patent grafts. After returning home he noted right groin swelling an discomfort. No additional complaints at this time. In the ER patient afebrile, hemodynamically stable with mild hypertension ER course: Benadryl Solu-Medrol Admission Exam Per Admitting Provider General: patient resting comfortably, NAD, non-toxic in appearance, AA&O x 4 Skin: warm, dry, intact, no rashes or lesions HEENT: NC/AT, PERRL, EOMI, anicteric sclera, conjunctiva without injection, external ear normal to inspection and nontender, nares patent, moist mucus membranes, dentition intact, no oropharyngeal lesions, neck supple, trachea midline, no LAD, no thyromegaly, no JVD Heart: +S1/S2, regular, 4/6 VIJAY across precordium to bilateral carotids Lungs: equal air entry bilaterally, no rales/rhonchi/wheezes Abd: +BS, soft, NT/ND, no masses/organomegaly/ascites Ext: warm, 2+ pulses in UE/LE bilaterally, no clubbing/cyanosis or edema Neuro: nonfocal, patient AA&O x 4, speech intact, no facial droop, moving all extremities on command with equal strength 5/5 Discharge Exam General: patient resting comfortably, NAD, non-toxic in appearance, AA&O x 4 Skin: warm, dry, intact, no rashes or lesions HEENT: NC/AT, PERRL, EOMI, anicteric sclera, conjunctiva without injection, external ear normal to inspection and nontender, nares patent, moist mucus membranes, dentition intact, no oropharyngeal lesions, neck supple, trachea midline, no LAD, no thyromegaly, no JVD Heart: +S1/S2, regular, 4/6 VIJAY across precordium to bilateral carotids Lungs: equal air entry bilaterally, no rales/rhonchi/wheezes Abd: +BS, soft, NT/ND, no masses/organomegaly/ascites Ext: warm, 2+ pulses in UE/LE bilaterally, no clubbing/cyanosis or edema Neuro: nonfocal, patient AA&O x 4, speech intact, no facial droop, moving all extremities on command with equal strength 5/5 Discharge Plan Discharge Items Patient Disposition: Transfer Acute Care Hospital Reason For Visit: RIGHT PSEUDOANEURYSM S/P CATHETERIZATION Discharge Diagnosis: Right LEATHER CARVER Pseudoaneurysm Condition on Discharge: Serious Activity: As commented below Activity Comment: Please follow discharge instructions from [facility] Non-emergency contact: Primary Care Provider Call non-emergency contact if: you have any medication questions, your pain is worsening, your temperature is above 101.5, your wound has increased redness and your wound pain has increased Follow-up/Referrals: Syed Tyson DO [Primary Care Provider] - Diet: Other - See Diet Comment Diet Comment: Please follow diet instructions per [facility] Addtl Attending Provider Instructions: You are being transferred to [facility] for Vascular Surgery Evaluat ion of your Pseudoaneurysm Pending Studies at Discharge: No Stand-Alone Forms: My [facility] Skilled Items Patient informed of condition?: Yes DNR: No Discharge Level of Care: Other Communicable Disease: No Discharge Prognosis: Stable Lines: None Urinary Catheter: No Medications and DC Order Prescriptions: Continued carvedilol [Coreg] 3.125 mg tablet 3.125 mg PO BID Qty: 180 3RF Rx Instructions: must administer with a meal/food ezetimibe [Zetia] 10 mg tablet 10 mg PO DAILY Qty: 90 3RF atorvastatin 80 mg tablet 80 mg PO HS Qty: 100 3RF omeprazole 20 mg capsule,delayed release(DR/EC) 20 mg PO DAILY Qty: 90 1RF aspirin 81 mg tablet,delayed release (DR/EC) 81 mg PO DAILY omega-3 fatty acids-fish oil [Fish Oil] 360-1,200 mg capsule 1 cap PO BID loratadine [Allergy Relief (loratadine)] 10 mg tablet 10 mg PO DAILY PRN (Reason: Congestion) ascorbic acid (vitamin C) 1,000 mg capsule 1,000 mg PO DAILY diphenhydramine HCl 50 mg capsule 50 mg PO DAILY PRN (Reason: Sleep) multivitamin Tablet 1 tab PO DAILY cholecalciferol (vitamin D3) [Vitamin D3] 5,000 unit Tablet 5,000 unit PO DAILY hydrochlorothiazide 12.5 mg tablet 12.5 mg PO DAILY Discharge Orders: Discharge Order (Routine); Ordered 05/17/25 Ordered By: Nidia Oglesby Admission Data Admit Date/Time: 05/16/25 21:38 Attending Provider: Nidia Oglesby Admit Provider: Nidia Oglesby Primary Care Provider: Syed Tyson Other Providers: Nidia Oglesby; Cristóbal Polanco Hospital Stay Data Consultations 05/16/25 21:02 ED Decision to Admit Stat 05/17/25 00:29 Consult Clinical Resource Coordinator Routine Diagnostic Imagining Performed 05/16/25 17:53 US arterial duplex LE RT Stat 05/16/25 20:42 CT angio abdomen pelvis w con Stat Discharge Instructions Given to Patient (Per Discharging Provider) You are being transferred to [facility] for Vascular Surgery Evaluation of your Pseudoaneurysm Total Time Total Time Spent Total Time Spent (In Minutes): 20 Coding Level of Care Code 36118 IN/OBS DISCH 30 MIN/LESS Diagnoses Pseudoaneurysm I72.9 Coronary artery disease I25.10 HTN (hypertension) I10 Dyslipidemia E78.5 GERD without esophagitis K21.9
[2025-05-17 07:27] VITALS: PULSE 76
[2025-05-17] MEDS: ICU Protocol for HYPERglycemia SCH (07:29)
[2025-05-17] MEDS: hydroCHLOROthiazide 25 MG TAB PO SCH (07:33)
[2025-05-17] MEDS: carvediloL 3.125 MG TAB PO SCH (07:34)
[2025-05-17] MEDS: EZETIMIBE 10 MG TAB PO SCH (07:34)
[2025-05-17] MEDS: PANTOprazole 40 MG TAB PO SCH (07:35)
[2025-05-17 08:11] VITALS: BP 128/68; TEMP 98.6; O2SAT 96
[2025-05-17] MEDS ORDERED: ASPIRIN 81 MG ECTAB PO SCH (09:00)
--- NOTE | 2025-05-17 10:20 | Electrocardiogram Report ---
Test Reason : Blood Pressure : */* mmHG Vent. Rate : 73 BPM Atrial Rate : 73 BPM P-R Int : 232 ms QRS Dur : 106 ms QT Int : 410 ms P-R-T Axes : 77 32 5 degrees QTcB Int : 451 ms Sinus rhythm with 1st degree A-V block with Premature supraventricular complexes and with frequent Pr emature ventricular complexes Minimal voltage criteria for LVH, may be normal variant Nonspecific ST abnormality Borderline ECG When compared with ECG of 09-May-2025 10:09, (unconfirmed) Premature supraventricular complexes are now Present Vent. rate has increased by 24 bpm Nonspecific T wave abnormality now evident in Inferior leads Confirmed by Sorin Kemp ([id number]) on 05/17/2025 10:20:10 AM Referred By: Govind Browning Confirmed By: Sorin Kemp
[2025-05-17] MEDS ORDERED: ATORVASTATIN 40 MG TAB PO SCH (21:00)
== END 2025-05-17 08:28 | disposition short-term general hospital (02) | DRG 287 ==
LOC: SUATTDRO → ED 17:27 → INTOOBSV 21:38 → 1E 21:38 → SUATTDRO 21:38 → 1E 23:34